=== PATIENT | female | born 1990 ===

== ENCOUNTER 2017-11-23 12:55 | Day surgery (SDC) | payer OTHER ==
[~2017-11-23 12:55] MED LIST: Buffered Lidocaine 0.9% SYRIN* 5 ML/SYR SYRINGE INTRADERM ONE
[2017-11-23] MEDS ORDERED: Buffered Lidocaine 0.9% SYRIN* 5 ML/SYR SYRINGE ONE (13:16)
[2017-11-23] MEDS ORDERED: Scopolamine 1.5 mg* PATCH ONE (13:59)
[2017-11-23] MEDS ORDERED: Propofol* 500 MG/50 ML BTL ONE (15:06)
[2017-11-23] MEDS ORDERED: Lidocaine 2% PF * 5 ML VIAL ONE (15:07)
[2017-11-23] MEDS ORDERED: Ondansetron INJ* 2 MG/ML VIAL ONE (15:09)
[2017-11-23] MEDS ORDERED: Propofol* 10 MG/ML 20 ML BTL IV PUSH ONE (15:09)
[2017-11-23] MEDS ORDERED: fentaNYL* 50 MCG/ML 2 ML VIAL (100 MCG VIAL) ONE ×2 (15:09→16:01)
[2017-11-23] MEDS ORDERED: Mivacurium Chloride* 20 MG/10 ML VIAL IV ONE (15:09)
[2017-11-23] MEDS ORDERED: Dexamethasone IV* 4 MG/ML 1 ML (4 MG) ONE (15:09)
[2017-11-23] MEDS ORDERED: Midazolam* 1 MG/ML 2 ML VIAL (2 MG) ONE (15:09)
[2017-11-23] MEDS ORDERED: Naloxone* 0.4 MG/ML 1 ML VIAL IV PRN (15:56)
[2017-11-23] MEDS ORDERED: HYDROcodone/ACETAMIN 5-325 MG* 1 TAB PO PRN (15:56)
[2017-11-23] MEDS ORDERED: DiMENhydriNATE IV* 50 MG/ML VIAL IV PUSH PRN (15:56)
[2017-11-23] MEDS: fentaNYL* 50 MCG/ML 2 ML VIAL (100 MCG VIAL) IV PRN ×2 (16:03→16:08)
[2017-11-23 16:42] VITALS: BP 129/91
--- NOTE | 2017-11-24 15:11 | OP ---
DATE OF OPERATION: 11/23/17 - SDS DATE OF : 86 SURGEON: Je Michelle MD PRE-OP DIAGNOSIS: Chronic tonsillitis. POST-OP DIAGNOSIS: Chronic tonsillitis. OPERATIVE PROCEDURE: Tonsillectomy. BRIEF HISTORY: This 27-year-old with frequent cryptic tonsillar debris as well as recurring tonsillitis, elected for surgical therapy. DESCRIPTION OF PROCEDURE: The patient was taken to the operating room. General anesthetic was given and the patient was intubated. Tongue, mandible, and soft palate were retracted. Coblator was used to remove the tonsils. Once hemostasis was obtained, the patient was awakened and sent to recovery room in stable condition. Instrument and sponge counts were correct. Blood loss was minimal. [id number]/[facility] #: [id number] [facility]
== END 2017-11-23 17:08 | disposition home or self-care (01) ==
LOC: OR 12:55
PROVIDERS: ATTEND Otolaryngology
DX: J35.01 Chronic tonsillitis (principal); I10 Essential (primary) hypertension; R06.83 Snoring; J35.1 Hypertrophy of tonsils
CPT/HCPCS: 81025; 88304; A9270-GY; J1100; J2250; J2405; J2704; J3010